=== PATIENT | female | born 1970 | race Caucasian/White ===

== ENCOUNTER → 2018-09-23 13:52 | Outpatient (CLI) | payer OTHER ==
[~2018-09-23 13:52] MED LIST: HYDROCODONE-APA1 TAB PO; WELLBUTRIN SR150 MG PO
== END | disposition home or self-care (01) ==
LOC: D.CT 13:52
DX: R10.9 Unspecified abdominal pain (principal)

== ENCOUNTER → 2018-10-02 12:46 | Outpatient (CLI) | payer OTHER ==
[2014-08-23 09:41] VITALS: BMI 30.8
== END | disposition home or self-care (01) ==
LOC: D.NM 12:46
PROVIDERS: ATTEND Family Medicine
DX: R10.9 Unspecified abdominal pain (principal)

== ENCOUNTER → 2018-10-24 06:56 | Outpatient (CLI) | payer OTHER ==
[2014-08-23 09:41] VITALS: BMI 30.8
[2018-10-24 07:42] LABS: ALBUMIN 3.7 g/dL (3.4-5.0); BILIRUBIN - DIRECT 0.1 mg/dL (0.00-0.30); BILIRUBIN - INDIRECT 0.29 mg/dL (0.00-1.00); BILIRUBIN - TOTAL 0.39 mg/dL (0.2-1.3); PROTEIN - SERUM 7.6 g/dL (6.4-8.2)
== END | disposition home or self-care (01) ==
LOC: D.US 06:56
PROVIDERS: ATTEND Internal Medicine Gastroenterology
DX: R16.2 Hepatomegaly with splenomegaly, not elsewhere classified (principal); R94.5 Abnormal results of liver function studies

== ENCOUNTER → 2019-05-01 09:15 | Outpatient (CLI) | payer OTHER ==
[2014-08-23 09:41] VITALS: BMI 30.8
[2019-05-01 09:59] LABS: BILIRUBIN - DIRECT 0.1 mg/dL (0.00-0.30); BILIRUBIN - INDIRECT 0.38 mg/dL (0.00-1.00); BILIRUBIN - TOTAL 0.48 mg/dL (0.2-1.3); PROTEIN - SERUM 8.2 g/dL (6.4-8.2)
== END | disposition home or self-care (01) ==
LOC: D.US 09:15
PROVIDERS: ATTEND Internal Medicine Gastroenterology
DX: K76.0 Fatty (change of) liver, not elsewhere classified (principal)